=== PATIENT | male | born 1970 | race Caucasian/White ===

== ENCOUNTER → 2025-06-21 | Outpatient (CLI) | payer MEDICARE, MEDICAID, SELFPAY ==
[2025-06-21 10:37] LABS: Hematocrit 44.2 % (40-54); Hemoglobin 15.5 g/dL (13.0-16.5); Mean Corp Hgb Conc 35.1 g/dL (32-36); Mean Corpuscular Volume 87.9 fL (80-94); Mean Platelet Vol. 10.6 fl (6.2-12.0); Platelet Count 203 K/mm3 (150-450); RBC Distribution Width CV 12.7 % (11.6-14.6); RBC Distribution Width SD 41.1 fl (35.1-43.9); Red Blood Count 5.03 M/mm3 (4.6-6.2); White Blood Count 5.6 K/mm3 (4.4-11.0)
[2025-06-21 11:23] LABS: AST(SGOT) 22 U/L (<=37); Alanine Aminotransfer ALT/SGPT 22 U/L (<=46); Albumin, Serum 4.4 g/dL (3.5-5.0); Alkaline Phosphatase 64 U/L (40-129); Anion Gap 12 (5-15); BUN 22 mg/dL (4-19); BUN/Creat Ratio 23.0 RATIO (10-20); Calcium,Total 9.5 mg/dL (7.6-11.0); Carbon Dioxide 23.2 mmol/L (21.0-32.0); Chloride 103 mmol/L (98-108); Globulin 3.0 g/dL (2.2-4.2); Glucose 100 mg/dL (70-99); Potassium 4.2 mmol/L (3.3-5.1)
[2025-06-21 11:29] LABS: Valproic Acid (Depakene) Level 79 ug/mL (50-100)
== END | disposition home or self-care (01) ==
PROVIDERS: Referring Provider Psychiatry & Neurology Neurology; Visit Provider Psychiatry & Neurology Neurology
DX: G40.209 Localization-related (focal) (partial) symptomatic epilepsy and epileptic syndromes with complex partial seizures, not intractable, without status epilepticus (principal)
CPT/HCPCS: 36415; 80053; 80164; 80184; 85027

== ENCOUNTER → 2025-06-26 | Outpatient (CLI) | payer MEDICARE, MEDICAID, SELFPAY ==
[2025-06-26 15:27] LABS: Hematocrit 45.9 % (40-54); Hemoglobin 15.7 g/dL (13.0-16.5); Mean Corp Hgb Conc 34.2 g/dL (32-36); Mean Corpuscular Volume 90.4 fL (80-94); Mean Platelet Vol. 10.6 fl (6.2-12.0); Platelet Count 202 K/mm3 (150-450); RBC Distribution Width CV 12.6 % (11.6-14.6); RBC Distribution Width SD 41.7 fl (35.1-43.9); Red Blood Count 5.08 M/mm3 (4.6-6.2); White Blood Count 5.8 K/mm3 (4.4-11.0)
[2025-06-26 17:05] LABS: AST(SGOT) 18 U/L (<=37); Alanine Aminotransfer ALT/SGPT 16 U/L (<=46); Albumin, Serum 4.5 g/dL (3.5-5.0); Alkaline Phosphatase 62 U/L (40-129); Anion Gap 11 (5-15); BUN 18 mg/dL (4-19); BUN/Creat Ratio 17.7 RATIO (10-20); Calcium,Total 9.9 mg/dL (7.6-11.0); Carbon Dioxide 26.0 mmol/L (21.0-32.0); Chloride 102 mmol/L (98-108); Cholesterol 170 mg/dL (<=200); Globulin 3.2 g/dL (2.2-4.2); Glucose 101 mg/dL (70-99); Low Density Lipoprotein Calc. 83 mg/dL; Potassium 4.5 mmol/L (3.3-5.1); Triglycerides 76 mg/dL; Very Low Density Lipoprotein 15 mg/dL (5-40); cholesterol:hdl ratio screen 2.36
[2025-06-26 18:05] LABS: Ammonia 38.6 umol/L (16-60)
== END | disposition home or self-care (01) ==
PROVIDERS: Referring Provider Psychiatry & Neurology Neurology; Visit Provider Psychiatry & Neurology Neurology
DX: G40.209 Localization-related (focal) (partial) symptomatic epilepsy and epileptic syndromes with complex partial seizures, not intractable, without status epilepticus (principal); Z86.73 Personal history of transient ischemic attack (TIA), and cerebral infarction without residual deficits
CPT/HCPCS: 36415; 80053; 80061; 80184; 82140; 85027

== ENCOUNTER 2025-06-28 09:52 | Emergency (ER) | payer MEDICARE, SELFPAY ==
[2025-06-28] VITALS (31 sets, daily range): BP systolic 92–141; BP diastolic 41–86; PULSE 48–94; RESP 12–30; TEMP 36.1–36.6; O2SAT 93–100; BMI 31.3
--- NOTE | 2025-06-28 09:53 | EX.ED.DYSGE1 ---
HPI History of Present Illness Chief Complaint: Neuro S/Sx Informant: other Onset/Context/Timing Onset: Today Timing: Continuous Worsened by: Nothing Relieved by: Nothing Narrative Narrative: Patient presents with possible seizure that occurred today. Patient was getting an MRI when he became unresponsive. semiconductor equipment technician noted the patient was having some snoring respirations. Patient has a history of seizures and is on phenobarbital and valproic acid. Patient is nonverbal and is a poor informant. Patient has had prior craniotomy. 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 Patient was recently started on prednisone and valacyclovir. Patient was having the MRI for possible stroke. Mother states the patient has been having more drooling over the past couple days. Mother states that this is his only new sign of a possible stroke. [facility] Medical History (Updated 06/28/25 @ 15:[address] Kedar De León DO) Stroke Seizures Home Medications ?Medication ?Instructions ?Recorded ?Last Taken ?Type phenobarbital 64.8 mg tablet 64.8 mg .Route .COMPLEX #180 tabs 06/21/25 Unknown Rx valproic acid 250 mg capsule 250 mg .Route .COMPLEX #450 caps 06/21/25 Unknown Rx aspirin 81 mg tablet 81 mg PO QDAY #30 tabs 06/26/25 Unknown Rx atorvastatin 40 mg tablet (Lipitor) 40 mg PO QDAY #30 tabs 06/26/25 Unknown Rx prednisone 10 mg tablet See Rx Instructions .Route 06/26/25 Unknown Rx .COMPLEX #45 tabs valacyclovir 1 gram tablet 1,000 mg PO BID #14 tabs 06/26/25 Unknown Rx Allergy/AdvReac Type Severity Reaction Status Date / Time phenytoin (From Dilantin) Allergy Severe Anaphylaxis Verified 06/26/25 11:09 Family History Mother Diabetes Father Diabetes Surgical History (Updated 06/28/25 @ 09:[address] Kedar De León DO) Hx of craniotomy Social History Smoking Status: Never smoker second hand exposure: No alcohol intake: never substance use type: does not use what type of physical activity do you participate in: none seatbelt use: always ROS ROS ED Review of Systems ROS Unobtainable: due to mental condition and due to mental status EXAM Physical Exam Const Vital Signs: 06/28/25 09:53 06/28/25 10:35 06/28/25 10:38 Temperature 97.6 F L Temperature Source Temporal Pulse Rate 72 94 Respiratory Rate 20 H 18 30 H Blood Pressure 141/67 H 141/79 H Blood Pressure Mean 91 Pulse Ox 93 99 96 Oxygen Delivery Method Room Air Nasal Cannula Oxygen Flow Rate (L/min) 3 06/28/25 10:39 06/28/25 10:45 06/28/25 11:00 Temperature Temperature Source Pulse Rate 77 77 75 Respiratory Rate 22 H 19 H 17 Blood Pressure 141/79 H 138/82 H 129/81 H Blood Pressure Mean 98 100 96 Pulse Ox 100 99 Oxygen Delivery Method Oxygen Flow Rate (L/min) 06/28/25 11:08 06/28/25 11:15 06/28/25 11:30 Temperature Temperature Source Pulse Rate 82 Respiratory Rate 22 H Blood Pressure 129/81 H 130/73 H 126/79 H Blood Pressure Mean 97 90 93 Pulse Ox 98 Oxygen Delivery Method Nasal Cannula Oxygen Flow Rate (L/min) 3 06/28/25 11:45 06/28/25 12:00 06/28/25 12:15 Temperature Temperature Source Pulse Rate 74 77 Respiratory Rate 21 H 19 H Blood Pressure 121/73 H 129/80 H 133/86 H Blood Pressure Mean 88 94 100 Pulse Ox 97 Oxygen Delivery Method Oxygen Flow Rate (L/min) 06/28/25 12:30 06/28/25 12:45 06/28/25 13:00 Temperature Temperature Source Pulse Rate 71 58 L Respiratory Rate 17 16 Blood Pressure 134/73 H 116/62 101/49 L Blood Pressure Mean 90 77 66 Pulse Ox 100 100 Oxygen Delivery Method Room Air Oxygen Flow Rate (L/min) 06/28/25 13:00 06/28/25 13:15 06/28/25 13:30 Temperature Temperature Source Pulse Rate 69 74 60 Respiratory Rate 12 16 17 Blood Pressure 115/53 L 102/41 L Blood Pressure Mean 71 57 Pulse Ox 99 100 100 Oxygen Delivery Method Oxygen Flow Rate (L/min) 06/28/25 13:44 06/28/25 13:45 06/28/25 13:46 Temperature Temperature Source Pulse Rate 59 L 58 L 57 L Respiratory Rate 16 17 16 Blood Pressure 94/44 L 101/49 L Blood Pressure Mean 60 63 Pulse Ox 100 100 100 Oxygen Delivery Method Oxygen Flow Rate (L/min) 06/28/25 14:00 06/28/25 14:15 06/28/25 14:30 Temperature Temperature Source Pulse Rate 61 59 L 58 L Respiratory Rate 16 15 15 Blood Pressure 101/51 L Blood Pressure Mean 65 Pulse Ox 100 100 100 Oxygen Delivery Method Oxygen Flow Rate (L/min) 06/28/25 14:45 06/28/25 15:00 06/28/25 15:54 Temperature 96.9 F L Temperature Source Axillary Pulse Rate 62 56 L Respiratory Rate 16 15 Blood Pressure 101/55 L Blood Pressure Mean 68 Pulse Ox 99 100 Oxygen Delivery Method Oxygen Flow Rate (L/min) Positive well developed General Appearance ED: well developed HEENT Reports moist mucous membranes Eyes PERRL and EOMs intact bilaterally Resp clear to auscultation bilaterally Cardio regular rate and regular rhythm GI non-distended Palpation: soft Neuro Sensorium / Orientation: stuporous Motor Exam: general weakness MDM MDM MDM Narrative Medical decision making narrative: Differential diagnosis includes seizure with postictal state, electrolyte abnormality, intracranial bleeding, mass, and nonepileptic seizure. CBC will be obtained to assess for leukocytosis and anemia. Basic metabolic profile will be obtained to assess for electrolyte abnormality and renal function. Phenobarbital level will be obtained to assess for medication compliance. Valproic acid level will be obtained to assess for medication compliance. Lab Data Attestation: I reviewed the patient's lab results. Lab results narrative: CBC was reviewed and was within normal limits. Basic metabolic profile was reviewed. Glucose was mildly elevated at 136. BUN was slightly elevated at 23. The remainder is within normal limits. Valproic acid level was reviewed and was 65. Labs: Laboratory Results - last 24 hr 06/28/25 06/28/25 09:55 09:59 WBC 5.9 RBC 5.03 Hgb 15.4 Hct 44.8 MCV 89.1 MCH 30.6 MCHC 34.4 RDW Std Deviation 41.6 RDW Coeff of Chapo 12.7 Plt Count 191 MPV 10.3 Immature Gran % (Auto) 0.700 Neut % (Auto) 69.8 Lymph % (Auto) 25.8 [place] % (Auto) 2.9 Eos % (Auto) 0.5 Baso % (Auto) 0.3 Absolute Neuts (auto) 4.1 Absolute Lymphs (auto) 1.53 Nucleated RBC % 0 Sodium 140 Potassium 4.5 Chloride 104 Carbon Dioxide 25.3 Anion Gap 11 BUN 23 H Creatinine 0.95 Estim Creat Clear Calc 92.44 Est GFR (MDRD) Non-Af 95 BUN/Creatinine Ratio 24.0 H Glucose 136 H Calcium 9.5 Valproic Acid 65 POC Glucose 122 H Radiography Diagnostic Testing: MRI of the brain was reviewed. There is postoperative tissue that is mainly fat but does have some vasculature. There is underlying encephalomalacia of the left frontal, parietal, and temporal lobes. This appears to be chronic. Management Discussion w/another healthcare provider: Hospitalist and Liquor Runner Treatment and Re-Evaluation :: I was called back into the room because patient was having tonic-clonic activity. Patient's eyes were deviated to the left. Patient was having mild shaking of his right arm and legs. Patient was having jerking movements of his right hand and leg. Patient was given a dose of Ativan. Patient stopped having a seizure. Patient was resting comfortably. Patient started having shaking of his right arm. Patient then had an episode of possible ventricular tachycardia. Nurses could not palpate a pulse. CPR was initiated. I was called to the room. CPR was in progress when he got into the room. Patient was receiving chest compressions. Patient being connected to the defibrillator. Patient became more awake at that time. Patient was not given any epinephrine or defibrillations. Patient had a second seizure. Patient was given a repeat dose of Ativan. Patient stopped having seizure after this. Patient was still nonverbal but was more awake and alert. Patient was indicating some pain over his left cheek and face. Patient had another seizure. Patient was loaded with a gram of Keppra. Case was discussed with Dr. Sampson who saw the patient recently and ordered the MRI for possible stroke. He was advised of the patient's condition and the need for further admission due to the lack of return to baseline. He is agreeable with this. He recommended stopping the prednisone and valacyclovir. He also recommended having the patient get carotid Dopplers while he was admitted to the hospital. Because of the frequent seizures and incomplete return to baseline, patient will need to be transferred to a higher level of care where there are neurosurgical capabilities. Family was requesting [facility]. Patient was accepted to [facility] to the service of Dr. Polk. However, they will unlikely have a bed there today. Therefore, we will contact the hospitalist for admission here until the patient can be transferred to [facility]. Family understands and is agreeable with the plan. All questions were answered. Critical Care Time Critical Care Time: Yes Critical care time (excluding procedures): 30-74 minutes (72 minutes), Including time spent:, Discussing w/Patient &/or Family/Architectural Job Captain, Discussing w/Consultants, Arranging Admission or Transfer and Performing Direct Patient Care at Bedside Discharge Plan Triage Chief Complaint: Neuro S/Sx ED Provider: Kedar De León Dx/Rx/DC Orders Clinical Impression: Status epilepticus, Epilepsy, Ischemic stroke Prescriptions: No Action phenobarbital 64.8 mg tablet 64.8 mg .ROUTE .COMPLEX Qty: 180 1RF Rx Instructions: Take one tab PO qAM and one tab qhs valproic acid 250 mg capsule 250 mg .ROUTE .COMPLEX Qty: 450 3RF Rx Instructions: Take 2 tablets PO twice per day and 1 tablet every mid-day aspirin 81 mg tablet 81 mg PO QDAY Qty: 30 2RF prednisone 10 mg tablet See Rx Instructions .Route .COMPLEX Qty: 45 0RF Rx Instructions: 6 tabs orally daily x 5 day then 5 tabs x 1 day then 4 tabs x 1 day then 3 tabs x 1 day then 2 tabs x 1 day then 1 tab x 1 day atorvastatin [Lipitor] 40 mg tablet 40 mg PO QDAY Qty: 30 2RF valacyclovir 1 gram tablet 1,000 mg PO BID Qty: 14 0RF Primary Care Provider: Care Physician,No Primary Referrals: Care Physician,No Primary [Primary Care Provider] - Print Language: Norwegian Disposition Disposition: Acute Care Hospital Discharge Location: [facility]
--- NOTE | 2025-06-28 09:59 | RAD.NOTE ---
Witnessed seizure at this time bgt 122 dr. dickson at bedside - oxygen applied 2 mg ativan given at 0959- upper body shaking observed; seizure pads placed on bed; sx resolved post ativan
[2025-06-28] MEDS: 0.9% Normal Saline (1000mL) 1,000 ML 1000 ML IV (10:17)
[2025-06-28 10:19] LABS: Hematocrit 44.8 % (40-54); Hemoglobin 15.4 g/dL (13.0-16.5); Immature Granulocytes Count 0.040 X10^3/uL (0.0-0.0); Mean Corp Hgb Conc 34.4 g/dL (32-36); Mean Corpuscular Volume 89.1 fL (80-94); Mean Platelet Vol. 10.3 fl (6.2-12.0); NRBC Flagged by Analyzer 0 % (0-5); Platelet Count 191 K/mm3 (150-450); RBC Distribution Width CV 12.7 % (11.6-14.6); RBC Distribution Width SD 41.6 fl (35.1-43.9); Red Blood Count 5.03 M/mm3 (4.6-6.2); White Blood Count 5.9 K/mm3 (4.4-11.0)
[2025-06-28 11:00] LABS: Anion Gap 11 (5-15); BUN 23 mg/dL (4-19); BUN/Creat Ratio 24.0 RATIO (10-20); Calcium,Total 9.5 mg/dL (7.6-11.0); Carbon Dioxide 25.3 mmol/L (21.0-32.0); Chloride 104 mmol/L (98-108); Estimated Creatinine Clearance 92.44 ml/min (50-250); Glucose 136 mg/dL (70-99); Potassium 4.5 mmol/L (3.3-5.1); Valproic Acid (Depakene) Level 65 ug/mL (50-100)
--- NOTE | 2025-06-28 11:01 | EKG12_ITS ---
Test Reason : CODE BLUE Blood Pressure : */* mmHG Vent. Rate : 75 BPM Atrial Rate : 75 BPM P-R Int : 144 ms QRS Dur : 92 ms QT Int : 368 ms P-R-T Axes : 79 79 53 degrees QTcB Int : 410 ms Normal sinus rhythm Normal ECG Confirmed by Jhonny Sharpe ([id number]), magazine editor PETRONA ALICIA ([id number]) on 07/02/2025 1:06:50 PM Referred By: Confirmed By: Jhonny Sharpe
--- NOTE | 2025-06-28 11:31 | CHAPLAIN ---
Type of Pastoral Visit ___ Initial Visit ___ Follow-up Visit ___ On-call Visit ___ General Patient Visit ___ Spiritual Assessment ___ Family Conference ___ Bereavement ___ Rapid Response _x__ Code Blue ___ Other (describe below) Pastoral Care Referral From ___ Patient ___ Family ___ Nurse ___ Physician ___ [place] And Recausticizing Operator ___ Business Intelligence Analyst _x__ Other (describe below) Sacrament/Intervention ___ Active listening ___ Anointing ___ Scientologist ___ Bereavement ___ Communion ___ [place] exploration ___ ___ Life review _x__ Prayer ___ Reconciliation ___ Sacrament of Sick _x__ Supportive presence ___ Wedding ___ Other (describe below) Pastoral Comments patient was a code blue but was quickly revived; pt was in testing and then ED; mother of patient was in the triage area and she was offered support and presence; HRO and SW were also present to assist this mother; escorted mother, along with SW, to ED room; mother requested a prayer to be said and that was done; offered other support as desired
[2025-06-28] MEDS: levETIRAcetam IV 1,000 MG/100 ML BAG 400 MG IV (12:23)
--- NOTE | 2025-06-28 13:37 | CM.ED ---
Social Work SW and highway maintainer met with patients mother due to code alert. Patients mom was tearful but grateful for the visit, prayer said by highway maintainer per patients mothers request. Emotional support provided, no further needs identified at this time. Shayla Mcfarlane, DIETARY AIDE, CARPET REPAIRER
--- NOTE | 2025-06-28 13:52 | ED.RN ---
Nurse to nurse report given to [facility]
--- NOTE | 2025-06-28 18:30 | PCA ---
THIS US CALLED [facility] TO CHECK ON BED UPDATE, STILL WAITING ON INTERMEDIATE BED, ACCEPTING IS THE HOSPITALIST DR. ROCK.
--- NOTE | 2025-06-28 18:42 | PCM.HP.STD ---
HPI - General HPI Narrative SAROJ CLANCY, is a 54 M who presents [facility] Medical History (Updated 06/28/25 @ 15:[address] Kedar De León, ) Stroke Seizures Home Medications ?Medication ?Instructions ?Recorded ?Last Taken ?Type phenobarbital 64.8 mg tablet 64.8 mg .Route .COMPLEX #180 tabs 06/21/25 Unknown Rx valproic acid 250 mg capsule 250 mg .Route .COMPLEX #450 caps 06/21/25 Unknown Rx aspirin 81 mg tablet 81 mg PO QDAY #30 tabs 06/26/25 Unknown Rx atorvastatin 40 mg tablet (Lipitor) 40 mg PO QDAY #30 tabs 06/26/25 Unknown Rx prednisone 10 mg tablet See Rx Instructions .Route 06/26/25 Unknown Rx .COMPLEX #45 tabs valacyclovir 1 gram tablet 1,000 mg PO BID #14 tabs 06/26/25 Unknown Rx Allergy/AdvReac Type Severity Reaction Status Date / Time phenytoin (From Dilantin) Allergy Severe Anaphylaxis Verified 06/26/25 11:09 Family History Mother Diabetes Father Diabetes Surgical History (Updated 06/28/25 @ 09:[address] Kedar De León, ) Hx of craniotomy Social History Smoking Status: Never smoker second hand exposure: No alcohol intake: never substance use type: does not use what type of physical activity do you participate in: none seatbelt use: always Vital Signs Vital Signs Vital Signs: 06/28/25 09:53 06/28/25 10:35 06/28/25 10:38 Temperature 97.6 F L Temperature Source Temporal Pulse Rate 72 94 Respiratory Rate 20 H 18 30 H Blood Pressure 141/67 H 141/79 H Blood Pressure Mean 91 Pulse Ox 93 99 96 Oxygen Delivery Method Room Air Nasal Cannula Oxygen Flow Rate (L/min) 3 06/28/25 10:39 06/28/25 10:45 06/28/25 11:00 Temperature Temperature Source Pulse Rate 77 77 75 Respiratory Rate 22 H 19 H 17 Blood Pressure 141/79 H 138/82 H 129/81 H Blood Pressure Mean 98 100 96 Pulse Ox 100 99 Oxygen Delivery Method Oxygen Flow Rate (L/min) 06/28/25 11:08 06/28/25 11:15 06/28/25 11:30 Temperature Temperature Source Pulse Rate 82 Respiratory Rate 22 H Blood Pressure 129/81 H 130/73 H 126/79 H Blood Pressure Mean 97 90 93 Pulse Ox 98 Oxygen Delivery Method Nasal Cannula Oxygen Flow Rate (L/min) 3 06/28/25 11:45 06/28/25 12:00 06/28/25 12:15 Temperature Temperature Source Pulse Rate 74 77 Respiratory Rate 21 H 19 H Blood Pressure 121/73 H 129/80 H 133/86 H Blood Pressure Mean 88 94 100 Pulse Ox 97 Oxygen Delivery Method Oxygen Flow Rate (L/min) 06/28/25 12:30 06/28/25 12:45 06/28/25 13:00 Temperature Temperature Source Pulse Rate 71 58 L Respiratory Rate 17 16 Blood Pressure 134/73 H 116/62 101/49 L Blood Pressure Mean 90 77 66 Pulse Ox 100 100 Oxygen Delivery Method Room Air Oxygen Flow Rate (L/min) 06/28/25 13:00 06/28/25 13:15 06/28/25 13:30 Temperature Temperature Source Pulse Rate 69 74 60 Respiratory Rate 12 16 17 Blood Pressure 115/53 L 102/41 L Blood Pressure Mean 71 57 Pulse Ox 99 100 100 Oxygen Delivery Method Oxygen Flow Rate (L/min) 06/28/25 13:44 06/28/25 13:45 06/28/25 13:46 Temperature Temperature Source Pulse Rate 59 L 58 L 57 L Respiratory Rate 16 17 16 Blood Pressure 94/44 L 101/49 L Blood Pressure Mean 60 63 Pulse Ox 100 100 100 Oxygen Delivery Method Oxygen Flow Rate (L/min) 06/28/25 14:00 06/28/25 14:15 06/28/25 14:30 Temperature Temperature Source Pulse Rate 61 59 L 58 L Respiratory Rate 16 15 15 Blood Pressure 101/51 L Blood Pressure Mean 65 Pulse Ox 100 100 100 Oxygen Delivery Method Oxygen Flow Rate (L/min) 06/28/25 14:45 06/28/25 15:00 06/28/25 15:54 Temperature 96.9 F L Temperature Source Axillary Pulse Rate 62 56 L Respiratory Rate 16 15 Blood Pressure 101/55 L Blood Pressure Mean 68 Pulse Ox 99 100 Oxygen Delivery Method Oxygen Flow Rate (L/min) 06/28/25 17:00 Temperature Temperature Source Pulse Rate 48 L Respiratory Rate 17 Blood Pressure 105/46 L Blood Pressure Mean 65 Pulse Ox 100 Oxygen Delivery Method Room Air Oxygen Flow Rate (L/min) Weight Weight: 88.1 kg Body Mass Index (BMI) 31.3 Results Lab / Micro Data 06/28/25 09:55 06/28/25 09:55 Labs: Laboratory Results - last 24 hr 06/28/25 09:55: WBC 5.9, RBC 5.03, Hgb 15.4, Hct 44.8, MCV 89.1, MCH 30.6, MCHC 34.4, RDW Std Deviation 41.6, RDW Coeff of Chapo 12.7, Plt Count 191, MPV 10.3, Immature Gran % (Auto) 0.700, Neut % (Auto) 69.8, Lymph % (Auto) 25.8, [place] % (Auto) 2.9, Eos % (Auto) 0.5, Baso % (Auto) 0.3, Absolute Neuts (auto) 4.1, Absolute Lymphs (auto) 1.53, Nucleated RBC % 0, Sodium 140, Potassium 4.5, Chloride 104, Carbon Dioxide 25.3, Anion Gap 11, BUN 23 H, Creatinine 0.95, Estim Creat Clear Calc 92.44, Est GFR (MDRD) Non-Af 95, BUN/Creatinine Ratio 24.0 H, Glucose 136 H, Calcium 9.5, Valproic Acid 65 06/28/25 09:59: POC Glucose 122 H
--- NOTE | 2025-06-28 18:53 | ED.RN ---
Family alerted Rn that pt was having another seizure. Alerted Dr. Cortez, verbal order for 2mg IV ativan to be given. Given to pt, pt stopped seizing. Dr. Cortez in room for assessment and to discuss pt care with family. Dr. Perez into room for admission
--- NOTE | 2025-06-28 19:16 | PCA ---
Patient's family stated they would be okay with attempting for pt to transfer to [facility]. This personal secretary initiated this transfer @ 1907, spoke to Frida. She stated with [facility] they are unable to have a patient pending at two of their facilities at the same time. She stated it would be in our best interest to continue waiting for a bed with [facility] as they will definitely have a bed before [place] would. She also stated [place] typically has later discharges, which tends to mean beds open later in the evening. Relayed this information to the hospitalist.
--- NOTE | 2025-06-28 20:11 | RAD_ITS ---
PROCEDURE: CHEST 1 VIEW (PORTABLE) 06/28/2025 REASON FOR EXAM: POSSIBLE ASPIRATION TECHNIQUE: Frontal view of the chest. COMPARISON: None. FINDINGS: LUNGS AND PLEURA: Strandy opacity in the lateral left lung base. Minimal left costophrenic angle blunting. No pneumothorax or right pleural effusion. HEART AND MEDIASTINUM: The cardiac silhouette is mildly enlarged. The mediastinal contour is normal. BONES: No acute osseous abnormality. RAD/Chest 1 View (Portable) IMPRESSION: 1. Strandy left basilar opacity, likely atelectasis or an infiltrate. 2. Possible minimal left pleural effusion. Reading Location: [id number]
[2025-06-28] MEDS: levETIRAcetam IV 2,000 MG in 0.9% Normal Saline (250mL Bag) 230 ML 1000 MG IV ×2 (20:19→21:03)
--- NOTE | 2025-06-28 21:29 | PCA ---
Called [facility] @2129, spoke to Frida. Called to inquire if pt would be eligible for ED to ED transfer as opposed to waiting for an inpatient bed due to change in patient status.
--- NOTE | 2025-06-28 23:36 | ED.RN ---
Per [facility], no report is needed.
== END 2025-06-28 23:37 | disposition short-term general hospital (02) ==
PROVIDERS: Emergency Provider Emergency Medicine; Visit Provider Emergency Medicine
DX: G40.901 Epilepsy, unspecified, not intractable, with status epilepticus (principal); I63.9 Cerebral infarction, unspecified; Z79.899 Other long term (current) drug therapy
CPT/HCPCS: 71045; 80048; 80164; 80184; 82962; 85025; 92950; 93005; 96365; 96366; 96375; 96376; 99285; A4216

== ENCOUNTER → 2025-06-28 | Outpatient (CLI) | payer MEDICARE, SELFPAY ==
--- NOTE | 2025-06-28 08:39 | MRI_ITS ---
PROCEDURE: BRAIN W/WO CONTRAST 06/28/2025 REASON FOR EXAM: DYSARTHRIA; L FACIAL WEAK; L EAR PAIN; ?CVA VS BEL TECHNIQUE: Procedure Code: [id number] Modality: MR Procedure: BRAIN W/WO CONTRAST Multiplanar and multisequence images were obtained. CONTRAST: Gadavist VOLUME: 17 mL COMPARISON: Comparison made to prior outside report. By report the surgical changes on the left are likely unchanged. FINDINGS: Diffusion-weighted images:Focal restricted area of fusion in the right centrum semiovale with associated dark ADC signal. ADC map: As above. Gradient images: Negative. Cerebrum: Patient has undergone previous left-sided craniotomy and craniectomy with presumed postoperative flap put in the surgical defect. This postoperative tissue is mainly fat containing but does have some vasculature. Total dimensions are 9.9 x 3.6 x 5.8 cm. Underlying cystic encephalomalacia of the left frontal parietal and temporal lobes is noted. This has a chronic appearance with no restricted diffusion. No residual or recurrent mass. Additionally as an old right frontal infarction along the tract of the previous intraparenchymal pressure monitor/ventriculostomy. White matter: Underlying diffuse mild periventricular white matter changes. As described above there is extensive and cephalo malacia and cystic encephalomalacia of the left hemisphere of the brain. Additionally there is evidence of right-sided dionna holes and pressure monitor tracts in the right frontal and parietal lobes. Cerebellum:Negative for mass. Negative for acute infarction. Moderate cerebellar volume loss. CSF pathways and ventricles: Cystic dilatation of the left temporal horn related to underlying infarction/cystic and encephalomalacia. No significant subfalcine or other forms of herniation Basal ganglia and thalami: Negative. No acute infarctions. Brainstem: Midbrain, alethea and medulla negative. Midline structures: Diffuse thinning of the corpus callosum. Pituitary fossa and cerebellar tonsils negative. Limbic system: Volume loss of the medial left temporal lobe with intact amygdala and hippocampi bilaterally. Extra-axial spaces: Negative. Negative for subarachnoid, subdural or epidural hemorrhage. Calvarium: Extensive left-sided craniectomy involving a large portion left frontal parietal and temporal bones. There is interposition between the scalp in the underlying parenchyma is a oblong shaped extra-axial fatty lesion which does contain vessels likely a postoperative flap. Remainder of the calvarium intact. Orbital structures: Globes negative. Extraocular muscles negative. Paranasal sinuses: Moderate mucosal disease of the frontal and ethmoid sinuses. Remainder of the sinuses negative. Vascular structures: Normal intracranial flow voids including the superior sagittal sinus. Other: Remainder of exam negative. MRI/Brain W/WO Contrast IMPRESSION: Punctate acute infarction in the right centrum semiovale. 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 Please note this mainly fat containing surgical flap is moderately vascular, of uncertain etiolo gy. Underlying infarction and cystic encephalomalacia and associated changes of the left hemisphere of the brain and left temporal horn. In the left MCA distribution. Reading Location: [place] [id number]
== END | disposition home or self-care (01) ==
LOC: PSN 07:48
PROVIDERS: Referring Provider Psychiatry & Neurology Neurology; Visit Provider Psychiatry & Neurology Neurology
DX: R47.1 Dysarthria and anarthria (principal); R29.810 Facial weakness; H92.02 Otalgia, left ear; Z86.73 Personal history of transient ischemic attack (TIA), and cerebral infarction without residual deficits
CPT/HCPCS: 70553; 93005; A9575; A4216

== ENCOUNTER → 2025-07-18 | Outpatient (CLI) | payer MEDICARE, MEDICAID, SELFPAY ==
[2025-07-18 10:39] LABS: Ammonia 70.1 umol/L (16-60)
[2025-07-18 10:48] LABS: Hematocrit 42.7 % (40-54); Hemoglobin 14.5 g/dL (13.0-16.5); Mean Corp Hgb Conc 34.0 g/dL (32-36); Mean Corpuscular Volume 90.9 fL (80-94); Mean Platelet Vol. 10.6 fl (6.2-12.0); Platelet Count 213 K/mm3 (150-450); RBC Distribution Width CV 13.0 % (11.6-14.6); RBC Distribution Width SD 42.4 fl (35.1-43.9); Red Blood Count 4.70 M/mm3 (4.6-6.2); White Blood Count 4.5 K/mm3 (4.4-11.0)
[2025-07-18 10:57] LABS: Valproic Acid (Depakene) Level 62 ug/mL (50-100)
[2025-07-18 11:00] LABS: AST(SGOT) 27 U/L (<=37); Alanine Aminotransfer ALT/SGPT 21 U/L (<=46); Albumin, Serum 4.3 g/dL (3.5-5.0); Alkaline Phosphatase 80 U/L (40-129); Anion Gap 11 (5-15); BUN 23 mg/dL (4-19); BUN/Creat Ratio 21.8 RATIO (10-20); Calcium,Total 9.5 mg/dL (7.6-11.0); Carbon Dioxide 25.6 mmol/L (21.0-32.0); Chloride 106 mmol/L (98-108); Globulin 2.7 g/dL (2.2-4.2); Glucose 84 mg/dL (70-99); Magnesium 2.0 mg/dL (1.5-2.2); Potassium 3.7 mmol/L (3.3-5.1)
[2025-07-19 15:08] LABS: ANTINUCLEAR ANTIBODIES DIRECT Negative (Negative)
== END | disposition home or self-care (01) ==
LOC: MTLAB 07:03
PROVIDERS: Referring Provider Psychiatry & Neurology Neurology; Visit Provider Psychiatry & Neurology Neurology
DX: G40.909 Epilepsy, unspecified, not intractable, without status epilepticus (principal); Z86.73 Personal history of transient ischemic attack (TIA), and cerebral infarction without residual deficits
CPT/HCPCS: 36415; 80053; 80164; 80177; 80184; 81240; 81241; 82140; 83735; 85027; 85300; 85301; 85302; 85303; 85305; 85306; 85652; 86038; 86147; 86160; 86162; 86225

== ENCOUNTER → 2025-07-25 | Outpatient (CLI) | payer MEDICARE, SELFPAY | END | disposition home or self-care (01) | LOC: CVS 13:36 | PROVIDERS: Referring Provider Psychiatry & Neurology Neurology; Visit Provider Psychiatry & Neurology Neurology | DX: Z86.73 Personal history of transient ischemic attack (TIA), and cerebral infarction without residual deficits (principal) | CPT/HCPCS: 93880 ==